=== PATIENT | male | born 1985 | race American Indian/Alaskan Native ===

== ENCOUNTER 2021-04-30 07:54 | Inpatient (IN) | payer OTHER ==
[2021-04-30] MEDS ORDERED: SODIUM CHLORIDE 0.9% 1000 ML 1,000 ML IV ONE ×2 (08:24→09:37)
--- NOTE | 2021-04-30 08:30 | Emergency Department Report ---
- General Chief complaint: Dyspnea/Respdistress Stated complaint: WEAKNESS Time Seen by Provider: 04/30/21 08:07 Source: patient Mode of arrival: Ambulatory Limitations: No Limitations - History of Present Illness Initial comments: 35-year-old male presents to the emergency department complaining of generalized weakness and fatigue. The patient states that it happened yesterday afternoon while he was at work. He states that he has been very thirsty lately and feels like he has been voiding a lot. He feels very dry, especially in his throat. He denies any recent sick exposures, injuries, fever or chills. He denies any upper respiratory symptoms including runny nose, sore throat, or cough. He denies any vomiting or diarrhea. Past medical history is negative. He denies any family history of diabetes. MD Complaint: generalized weakness, lack of energy Onset/Timin -: Sudden, days(s) Location: generalized Severity: moderate Consistency: constant Improves with: none Worsens with: exertion Associated Symptoms: other (Frequent urination, very thirsty) - Related Data Allergies Allergy/AdvReac Type Severity Reaction Status Date / Time No Known Allergies Allergy Unverified 04/30/21 07:56 ED Review of Systems ROS: Stated complaint: WEAKNESS Other details as noted in HPI Comment: All other systems reviewed and negative Constitutional: malaise, weakness. denies: chills, fever Eyes: denies: eye pain, eye discharge, vision change ENT: denies: ear pain, throat pain Respiratory: SOB with exertion. denies: cough, wheezing Cardiovascular: dyspnea on exertion. denies: chest pain, palpitations Endocrine: no symptoms reported, increased thirst, increased urine Gastrointestinal: denies: abdominal pain, nausea, diarrhea Genitourinary: denies: urgency, dysuria Musculoskeletal: denies: back pain, joint swelling, arthralgia Skin: denies: rash, lesions Neurological: weakness. denies: headache, paresthesias Psychiatric: denies: anxiety, depression Hematological/Lymphatic: denies: easy bleeding, easy bruising ED Past Medical Hx - Past Medical History Previous Medical History?: No - Surgical History Additional Surgical History: AMPUATATION 2 TOES/ HIP SURGERY ED Physical Exam - General Limitations: No Limitations General appearance: alert, in no apparent distress, obese - Head Head exam: Present: atraumatic, normocephalic - Eye Eye exam: Present: normal appearance - ENT ENT exam: Present: mucous membranes moist - Neck Neck exam: Present: normal inspection - Respiratory Respiratory exam: Present: normal lung sounds bilaterally. Absent: respiratory distress - Cardiovascular Cardiovascular Exam: Present: regular rate, normal rhythm. Absent: systolic murmur, diastolic murmur, rubs, gallop - GI/Abdominal GI/Abdominal exam: Present: soft, normal bowel sounds - Rectal Rectal exam: Present: deferred - Extremities Exam Extremities exam: Present: normal inspection - Back Exam Back exam: Present: normal inspection - Neurological Exam Neurological exam: Present: alert, oriented X3 - Psychiatric Psychiatric exam: Present: normal affect, normal mood - Skin Skin exam: Present: warm, dry, intact, normal color. Absent: rash - Level of Consciousness 1a. Level of Consciousness: alert/keenly responsive - LOC Questions 1b. LOC Questions: answers both correctly - LOC Command 1c. LOC Commands: performs tasks correctly - Best Gaze 2. Best Gaze: normal - Visual 3. Visual: no visual loss - Facial Palsy 4. Facial Palsy: normal symmetrical movement - Motor Arm 5a. Motor Arm Left: no drift 5b. Motor Arm Right: no drift - Motor Leg 6a. Motor Leg Left: no drift 6b. Motor Leg Right: no movement - Limb Ataxia 7. Limb Ataxia: absent - Sensory 8. Sensory: normal - Best Language 9. Best Language: no aphasia - Dysarthria 10. Dysarthria: normal - Extinction and Inattention 11. Extinction/Inattention: no abnormality - Scoring Total Score: 4 Stroke Severity: Minor Stroke ED Course Vital Signs 04/30/21 08:00 Temperature 98.3 F Pulse Rate 105 H Respiratory 20 Rate Blood Pressure 120/79 O2 Sat by Pulse 94 Oximetry - Reevaluation(s) Reevaluation #1: 04/30/21 09:12 Still feels dehydrated. No additional complaints 04/30/21 10:28 I reevaluated the patient and told him what the current findings are. We will call the hospitalist for admission. He has no further complaints. All questions were answered and he voiced understanding and agreement with this plan. - Consultations Consultation #1: 04/30/21 10:[address] Ernandez, hospitalist. The patient will be admitted to Dr. Dia ED Medical Decision Making - Lab Data Result diagrams: 04/30/21 08:43 11/18/21 08:43 - Medical Decision Making The patient has a glucose of 748 with an anion gap of 23. He does have pseudohyponatremia and hyperkalemia. He was treated with 2 L of IV normal saline and 10 units of IV insulin. I discussed the case with Dr. Kelly. I discussed the case with Dr. Ernandez. He will admit. Critical care attestation.: If time is entered above; I have spent that time in minutes in the direct care of this critically ill patient, excluding procedure time. ED Disposition Clinical Impression: Acute hyperglycemia, Diabetes mellitus, new onset, Hyperkalemia Disposition: ADMITTED INPATIENT Is pt being admited?: Yes Does the pt Need Aspirin: No Condition: Stable Instructions: Diabetes Mellitus Type 2 in Adults (ED)
[2021-04-30 09:23] LABS: Basophils % (Auto) 0.2 % (0.0-1.8); Eosinophils # (Auto) 0.1 K/mm3 (0.0-0.4); Hematocrit 49.3 % (35.5-45.6); Hemoglobin 16.1 gm/dl (11.8-15.2); Lymphocytes # (Auto) 2.7 K/mm3 (1.2-5.4); Lymphocytes % (Auto) 35.8 % (13.4-35.0); Mean Corpuscular HGB Conc 33 % (32-34); Mean Corpuscular Volume 88 fl (84-94); Monocytes # (Auto) 0.6 K/mm3 (0.0-0.8); Monocytes % (Auto) 8.5 % (0.0-7.3); Platelet Count 306 K/mm3 (140-440); Red Blood Count 5.58 M/mm3 (3.65-5.03); Red Cell Distribution Width 13.3 % (13.2-15.2)
[2021-04-30 09:35] LABS: Alanine Aminotransferase 23 units/L (7-56); Albumin 4.4 g/dL (3.9-5); BUN/Creatinine Ratio 22; Blood Urea Nitrogen 22 mg/dL (9-20); Calcium 9.3 mg/dL (8.4-10.2); Hemolysis Index 12
[2021-04-30] MEDS ORDERED: INSULIN REGULAR, HUMAN 100 UNITS/1 ML IV ONE (09:56)
[2021-04-30] MEDS ORDERED: ONDANSETRON 4 MG/2 ML INJ IV PRN (10:53)
[2021-04-30] MEDS ORDERED: MORPHINE 4 MG/1 ML INJ IV PRN (10:53)
[2021-04-30] MEDS ORDERED: DEXTROSE 50% IN WATER (25GM) 50 ML SYRINGE IV PRN (10:53)
[2021-04-30] MEDS ORDERED: ACETAMINOPHEN 325 MG TAB PO PRN (10:53)
[2021-04-30] MEDS ORDERED: oxyCODONE /ACETAMINOPHEN 5-325MG TAB PO PRN (10:53)
[2021-04-30] MEDS ORDERED: POTASSIUM CHLORIDE 10 MEQ 10 MEQ/100 ML BAG IV SCH ×2 (11:00)
[2021-04-30 11:40] LABS: BUN/Creatinine Ratio 20; Blood Urea Nitrogen 20 mg/dL (9-20); Calcium 8.6 mg/dL (8.4-10.2); Hemolysis Index 5
[2021-04-30 11:45] LABS: Chol/HDL Ratio 4.18 %
[2021-04-30] MEDS: INSULIN REGULAR, HUMAN 100 UNITS in SODIUM CHLORIDE 0.9% 99 ML IV SCH ×2 (11:51→23:23)
[2021-04-30] MEDS ORDERED: SODIUM CHLORIDE 0.45% 1000 ML 1,000 ML IV SCH (12:00)
[2021-04-30] MEDS ORDERED: POTASSIUM CHLORIDE 10 MEQ 10 MEQ/100 ML BAG IV PRN ×2 (12:00)
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
[2021-04-30 12:14] LABS: Bilirubin,Urine NEG (Negative); Blood,Urine NEG (Negative); Color,Urine Straw (Yellow); Protein,Urine <15 mg/dL mg/dL (Negative); Urobilinogen,Urine < 2.0 mg/dL (<2.0); WBC,Urine < 1.0 /HPF (0.0-6.0)
--- NOTE | 2021-04-30 12:58 | XRay Report ---
CHEST 1 VIEW 04/30/2021 10:29 AM INDICATION / CLINICAL INFORMATION: Assess for possible PNA. COMPARISON: None available. FINDINGS: SUPPORT DEVICES: None. HEART / MEDIASTINUM: No significant abnormality. LUNGS / PLEURA: No significant pulmonary or pleural abnormality. No pneumothorax. ADDITIONAL FINDINGS: No significant additional findings. IMPRESSION: 1. No acute findings. Signer Name: Rupesh Hidalgo MD Signed: 04/30/2021 12:54 PM Workstation Name: [id number]
[2021-04-30 14:22] LABS: BUN/Creatinine Ratio 21; Blood Urea Nitrogen 19 mg/dL (9-20); Calcium 8.8 mg/dL (8.4-10.2); Hemolysis Index 5
[2021-04-30 15:19] LABS: BUN/Creatinine Ratio 21; Blood Urea Nitrogen 19 mg/dL (9-20); Calcium 8.8 mg/dL (8.4-10.2); Hemolysis Index 4
[2021-04-30] MEDS: D5W/0.45% NACL/KCL 20 MEQ 20 MEQ/1,000 ML BAG IV SCH (18:21)
[2021-04-30] MEDS: ENOXAPARIN 40 MG/0.4 ML INJ SUB-Q SCH (18:27)
[2021-04-30 20:34] LABS: BUN/Creatinine Ratio 15; Blood Urea Nitrogen 17 mg/dL (9-20); Calcium 9.1 mg/dL (8.4-10.2); Hemolysis Index 5
[2021-04-30 23:29] LABS: BUN/Creatinine Ratio 15; Blood Urea Nitrogen 17 mg/dL (9-20); Calcium 9.1 mg/dL (8.4-10.2); Hemolysis Index 2
[2021-05-01] MEDS: D5W/0.45% NACL/KCL 20 MEQ 20 MEQ/1,000 ML BAG IV SCH (01:59)
[2021-05-01 05:14] LABS: Basophils % (Auto) 0.2 % (0.0-1.8); Eosinophils # (Auto) 0.1 K/mm3 (0.0-0.4); Eosinophils % (Auto) 1.8 % (0.0-4.3); Hematocrit 44.5 % (35.5-45.6); Hemoglobin 14.7 gm/dl (11.8-15.2); Lymphocytes # (Auto) 3.2 K/mm3 (1.2-5.4); Lymphocytes % (Auto) 48.2 % (13.4-35.0); Mean Corpuscular HGB Conc 33 % (32-34); Mean Corpuscular Volume 88 fl (84-94); Monocytes # (Auto) 0.5 K/mm3 (0.0-0.8); Monocytes % (Auto) 8.2 % (0.0-7.3); Platelet Count 240 K/mm3 (140-440); Red Blood Count 5.05 M/mm3 (3.65-5.03); Red Cell Distribution Width 13.8 % (13.2-15.2)
[2021-05-01 05:31] LABS: Alanine Aminotransferase 22 units/L (7-56); Albumin 3.7 g/dL (3.9-5); BUN/Creatinine Ratio 18; Blood Urea Nitrogen 16 mg/dL (9-20); Calcium 8.8 mg/dL (8.4-10.2); Hemolysis Index 15
[2021-05-01] MEDS ORDERED: DEXTROSE 50% IN WATER (25GM) 50 ML SYRINGE IV PRN (08:30)
--- NOTE | 2021-05-01 09:03 | Electrocardiograph Report ---
[facility] Test Date: 2021-04-30 Test Time: 09:46:50 Pat Name: MAURILIO KATHLEEN Department: Room: A252 Gender: M Case Managers: KB : 1985 Requested By: KRYSTINA MCFARLAND Order Number: [id number] Reading MD: Christo Bailey Measurements Intervals [place] Rate: 93 P: 71 NH: 144 QRS: -24 QRSD: 93 T: 35 QT: 338 QTc: 421 Interpretive Statements Sinus rhythm ST elev, probable normal early repol pattern No previous ECG available for comparison Electronically Signed On 05-01-2021 9:02:48 EST by Christo Bailey
[2021-05-01] MEDS: INSULIN NPH, HUMAN 100 UNIT/1 ML SUB-Q SCH ×2 (09:27→16:29)
[2021-05-01] MEDS: INSULIN LISPRO 100 UNIT/ML SUB-Q SCH ×4 (09:36→22:13)
[2021-05-01] MEDS: SENNOSIDES 8.6 MG TAB PO SCH ×2 (10:29→22:15)
--- NOTE | 2021-05-01 11:57 | Consultation ---
History of Present Illness - Reason for Consult Consult date: 05/01/21 DKA - History of Present Illness 35 y/o male admitted with DKA Past History Past Medical History: diabetes Past Surgical History: Other (amputation of several toes (r), B hip surgery) Social history: single, full code. denies: smoking, alcohol abuse, prescription drug abuse, IV drug use Family history: diabetes Medications and Allergies Allergies Allergy/AdvReac Type Severity Reaction Status Date / Time No Known Allergies Allergy Unverified 04/30/21 07:56 Home Medications Medication Instructions Recorded Confirmed Last Taken Type No Known Home Medications [No 04/30/21 04/30/21 Unknown History Reported Home Medications] Active Meds: Active Medications Acetaminophen (Acetaminophen 325 Mg Tab) 650 mg PO Q6H PRN PRN Reason: Pain MILD(1-3)/Fever >100.5/CONTRERAS Dextrose (Dextrose 50% In Water (25gm) 50 Ml Syringe) 50 ml IV Q30MIN PRN; Protocol PRN Reason: Hypoglycemia Enoxaparin Sodium (Enoxaparin 40 Mg/0.4 Ml Inj) 40 mg SUB-Q Q24H PADDY; Protocol Last Admin: 04/30/21 18:27 Dose: 40 mg Documented by: Sodium Chloride (Nacl 0.45% 1000 Ml) 1,000 mls @ 150 mls/hr IV DIRECT PADDY Last Admin: 04/30/21 11:52 Dose: 150 mls/hr Documented by: Potassium Chloride (Kcl 10meq/100ml) 10 meq in 100 mls @ 100 mls/hr IV Q1H PRN PRN Reason: SEE COMMENTS Potassium Chloride (Kcl 10meq/100ml) 10 meq in 100 mls @ 100 mls/hr IV Q1H PRN PRN Reason: SEE COMMENTS Insulin Human Lispro (Insulin Lispro 100 Unit/Ml) 0 unit SUB-Q ACHS PADDY; Protocol Last Admin: 05/01/21 11:54 Dose: 3 unit Documented by: Insulin Human NPH (Insulin Nph, Human 100 Unit/1 Ml) 15 unit SUB-Q BIDDIAB PADDY Last Admin: 05/01/21 09:45 Dose: 15 unit Documented by: Ondansetron HCl (Ondansetron 4 Mg/2 Ml Inj) 4 mg IV Q8H PRN PRN Reason: Nausea And Vomiting Oxycodone/Acetaminophen (Oxycodone /Acetaminophen 5-325mg Tab) 1 tab PO Q6H PRN PRN Reason: Pain, Moderate (4-6) Senna (Sennosides 8.6 Mg Tab) 17.2 mg PO QHS [facility] Last Admin: 05/01/21 10:29 Dose: Not Given Documented by: Sodium Chloride (Sodium Chloride 0.9% 10 Ml Flush Syringe) 10 ml IV BID [facility] Last Admin: 05/01/21 10:28 Dose: 10 ml Documented by: Sodium Chloride (Sodium Chloride 0.9% 10 Ml Flush Syringe) 10 ml IV PRN PRN PRN Reason: LINE FLUSH Review of Systems All systems: negative Exam - Constitutional Vitals: Temp Pulse Resp BP Pulse Ox 98.2 F 78 13 133/79 95 05/01/21 08:00 05/01/21 11:11 05/01/21 11:11 05/01/21 11:11 05/01/21 11:11 General appearance: Present: no acute distress, well-nourished, obese - EENT Eyes: Present: PERRL, EOM intact ENT: hearing intact, clear oral mucosa - Neck Neck: Present: supple, normal ROM - Respiratory Respiratory effort: normal Respiratory: bilateral: CTA - Cardiovascular Rhythm: regular Heart Sounds: Present: S1 & S2 - Extremities Extremities: no ischemia, pulses intact, pulses symmetrical, No edema Results - Labs CBC & Chem 7: 05/01/21 04:22 05/01/21 04:22 Labs: Abnormal lab results 04/30/21 04/30/21 04/30/21 Range/Units 12:53 13:51 14:02 RBC (3.65-5.03) M/mm3 Lymph % (Auto) (13.4-35.0) % [place] % (Auto) (0.0-7.3) % Sodium 134 L (137-145) mmol/L Chloride 95.0 L (98-107) mmol/L Glucose 415 H (75-100) mg/dL POC Glucose 439 H 379 H (70-105) mg/dL Albumin (3.9-5) g/dL Ur Specific [place] (1.003-1.030) 04/30/21 04/30/21 04/30/21 Range/Units 14:47 14:50 15:49 RBC (3.65-5.03) M/mm3 Lymph % (Auto) (13.4-35.0) % [place] % (Auto) (0.0-7.3) % Sodium 133 L (137-145) mmol/L Chloride 96.0 L (98-107) mmol/L Glucose 366 H (75-100) mg/dL POC Glucose 324 H 318 H (70-105) mg/dL Albumin (3.9-5) g/dL Ur Specific [place] (1.003-1.030) 04/30/21 04/30/21 04/30/21 Range/Units 18:12 19:25 19:55 RBC (3.65-5.03) M/mm3 Lymph % (Auto) (13.4-35.0) % [place] % (Auto) (0.0-7.3) % Sodium (137-145) mmol/L Chloride (98-107) mmol/L Glucose 258 H (75-100) mg/dL POC Glucose 206 H 243 H (70-105) mg/dL Albumin (3.9-5) g/dL Ur Specific [place] (1.003-1.030) 04/30/21 04/30/21 04/30/21 Range/Units 20:44 21:25 22:35 RBC (3.65-5.03) M/mm3 Lymph % (Auto) (13.4-35.0) % [place] % (Auto) (0.0-7.3) % Sodium (137-145) mmol/L Chloride (98-107) mmol/L Glucose (75-100) mg/dL POC Glucose 245 H 248 H 210 H (70-105) mg/dL Albumin (3.9-5) g/dL Ur Specific [place] (1.003-1.030) 04/30/21 04/30/21 04/30/21 Range/Units 23:00 23:28 Unknown RBC (3.65-5.03) M/mm3 Lymph % (Auto) (13.4-35.0) % [place] % (Auto) (0.0-7.3) % Sodium (137-145) mmol/L Chloride (98-107) mmol/L Glucose 173 H (75-100) mg/dL POC Glucose 153 H (70-105) mg/dL Albumin (3.9-5) g/dL Ur Specific [place] 1.033 H (1.003-1.030) 05/01/21 05/01/21 05/01/21 Range/Units 00:37 01:22 02:26 RBC (3.65-5.03) M/mm3 Lymph % (Auto) (13.4-35.0) % [place] % (Auto) (0.0-7.3) % Sodium (137-145) mmol/L Chloride (98-107) mmol/L Glucose (75-100) mg/dL POC Glucose 132 H 147 H 136 H (70-105) mg/dL Albumin (3.9-5) g/dL Ur Specific [place] (1.003-1.030) 05/01/21 05/01/21 05/01/21 Range/Units 03:32 04:22 04:22 RBC 5.05 H (3.65-5.03) M/mm3 Lymph % (Auto) 48.2 H (13.4-35.0) % [place] % (Auto) 8.2 H (0.0-7.3) % Sodium (137-145) mmol/L Chloride (98-107) mmol/L Glucose 183 H (75-100) mg/dL POC Glucose 149 H (70-105) mg/dL Albumin 3.7 L (3.9-5) g/dL Ur Specific [place] (1.003-1.030) 05/01/21 05/01/21 05/01/21 Range/Units 04:55 05:47 06:40 RBC (3.65-5.03) M/mm3 Lymph % (Auto) (13.4-35.0) % [place] % (Auto) (0.0-7.3) % Sodium (137-145) mmol/L Chloride (98-107) mmol/L Glucose (75-100) mg/dL POC Glucose 178 H 195 H 189 H (70-105) mg/dL Albumin (3.9-5) g/dL Ur Specific [place] (1.003-1.030) 05/01/21 05/01/21 05/01/21 Range/Units 07:38 08:37 11:40 RBC (3.65-5.03) M/mm3 Lymph % (Auto) (13.4-35.0) % [place] % (Auto) (0.0-7.3) % Sodium (137-145) mmol/L Chloride (98-107) mmol/L Glucose (75-100) mg/dL POC Glucose 169 H 145 H 200 H (70-105) mg/dL Albumin (3.9-5) g/dL Ur Specific [place] (1.003-1.030) - Imaging and Cardiology Chest x-ray: report reviewed Assessment and Plan 35 y/o male with DKA. Gap closed very quickly, off insulin and started on long acting therapy. Transition out of unit. Will sign off.
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
[2021-05-01] MEDS: ENOXAPARIN 40 MG/0.4 ML INJ SUB-Q SCH (16:29)
[2021-05-01 18:36] LABS: BUN/Creatinine Ratio 17; Blood Urea Nitrogen 17 mg/dL (9-20); Calcium 8.2 mg/dL (8.4-10.2); Hemolysis Index 61
[2021-05-01] MEDS ORDERED: INSULIN NPH, HUMAN 100 UNIT/1 ML SUB-Q ONE (19:53)
[2021-05-02 04:57] LABS: Basophils % (Auto) 0.4 % (0.0-1.8); Eosinophils # (Auto) 0.1 K/mm3 (0.0-0.4); Hematocrit 41.7 % (35.5-45.6); Hemoglobin 13.9 gm/dl (11.8-15.2); Lymphocytes # (Auto) 2.6 K/mm3 (1.2-5.4); Lymphocytes % (Auto) 48.3 % (13.4-35.0); Mean Corpuscular HGB Conc 33 % (32-34); Mean Corpuscular Volume 88 fl (84-94); Monocytes # (Auto) 0.5 K/mm3 (0.0-0.8); Monocytes % (Auto) 9.6 % (0.0-7.3); Platelet Count 215 K/mm3 (140-440); Red Blood Count 4.75 M/mm3 (3.65-5.03); Red Cell Distribution Width 13.7 % (13.2-15.2)
[2021-05-02 05:17] LABS: BUN/Creatinine Ratio 18; Blood Urea Nitrogen 14 mg/dL (9-20); Calcium 8.7 mg/dL (8.4-10.2); Hemolysis Index 10
[2021-05-02] MEDS: INSULIN LISPRO 100 UNIT/ML SUB-Q SCH ×4 (07:30→23:28)
[2021-05-02] MEDS ORDERED: glipiZIDE 5 MG TAB PO SCH (08:00)
[2021-05-02] MEDS: INSULIN NPH, HUMAN 100 UNIT/1 ML SUB-Q SCH ×2 (08:00→17:00)
[2021-05-02] MEDS: metFORMIN XR 500MG TAB PO SCH (08:00)
[2021-05-02] MEDS: LISINOPRIL 10 MG TAB PO SCH (09:28)
--- NOTE | 2021-05-02 12:55 | Progress Note ---
Assessment and Plan Assessment and plan: Patient is a 35-year-old male with past medical history of obesity who presented with DKA and was found to have newly diagnosed diabetes mellitus type 2. #DKA #Newly diagnosed diabetes mellitus type 2 #Obesity #Weight loss counseling #Exercise counseling #Dietary counseling -Hemoglobin A1c 11.9 -Continue NPH 15 units twice daily with Accu-Cheks with meals. Starting Met formin 500 mg twice daily and glipizide 5 mg daily. Will not be discharging patient with insulin given new diagnosis. Will have patient follow-up with PCP (referring upon discharge) to better titrate glycemic management. -Ordering diabetic counseling to be performed by RN. -Continuing diabetic diet. -Blood glucose goal [id number] while hospitalized. -BMI 37.4 -Counseled patient about importance of weight loss counseling, dietary changes (lean meats, fresh fruits and vegetable, and increase water intake), and incorporating cardiac exercise. Patient expressed understanding. -Time: +15 minutes #Hypertension -Blood pressure goal <130/180 in the setting of diabetes mellitus -Starting lisinopril 10 mg daily -Continue to monitor #Advanced care planning -Disease education conducted, care plan discussed, diagnoses discussed, prognosis discussed, and patient acknowledges understanding with care plan -Time: +20 minutes #Discharge planning -Planning for discharge home tomorrow with family. Disposition Plan: Continue medical management Total Time Spent with Patient (Minutes): 45 minutes History Interval history: No acute events over night. The patient denies fevers, chills, nausea, vomiting, abdominal pain, chest pain/pressure, shortness of breath, urinary symptoms, weakness, or confusion. Hospitalist Physical - Constitutional Vitals: Temp Pulse Resp BP Pulse Ox 98.3 F 85 19 136/92 95 05/02/21 05:44 05/02/21 05:44 05/02/21 05:44 05/02/21 05:44 05/02/21 05:44 General appearance: Present: no acute distress, well-nourished, obese - EENT Eyes: Present: PERRL, EOM intact ENT: hearing intact, clear oral mucosa, dentition normal - Neck Neck: Present: supple, normal ROM - Respiratory Respiratory effort: normal Respiratory: bilateral: CTA - Cardiovascular Rhythm: regular Heart Sounds: Present: S1 & S2 - Extremities Extremities: no ischemia, pulses intact, pulses symmetrical, No edema, normal temperature, normal color, Full ROM Peripheral Pulses: within normal limits - Abdominal General gastrointestinal: soft, non-tender, non-distended, normal bowel sounds - Integumentary Integumentary: Present: clear, warm, dry - Psychiatric Psychiatric: appropriate mood/affect, intact judgment & insight, memory intact, cooperative - Neurologic Neurologic: CNII-XII intact, moves all extremities - Allied Health Allied health notes reviewed: nursing HEART Score - HEART Score EKG: Normal Age: < 45 Risk factors: 1-2 risk factors Results - Labs CBC & Chem 7: 05/02/21 04:42 05/02/21 04:42 Labs: Laboratory Last Values WBC 5.4 K/mm3 (4.5-11.0) 05/02/21 04:42 RBC 4.75 M/mm3 (3.65-5.03) 05/02/21 04:42 Hgb 13.9 gm/dl (11.8-15.2) 05/02/21 04:42 Hct 41.7 % (35.5-45.6) 05/02/21 04:42 MCV 88 fl (84-94) 05/02/21 04:42 MCH 29 pg (28-32) 05/02/21 04:42 MCHC 33 % (32-34) 05/02/21 04:42 RDW 13.7 % (13.2-15.2) 05/02/21 04:42 Plt Count 215 K/mm3 (140-440) 05/02/21 04:42 Lymph % (Auto) 48.3 % (13.4-35.0) H 05/02/21 04:42 [place] % (Auto) 9.6 % (0.0-7.3) H 05/02/21 04:42 Eos % (Auto) 2.0 % (0.0-4.3) 05/02/21 04:42 Baso % (Auto) 0.4 % (0.0-1.8) 05/02/21 04:42 Lymph # (Auto) 2.6 K/mm3 (1.2-5.4) 05/02/21 04:42 [place] # (Auto) 0.5 K/mm3 (0.0-0.8) 05/02/21 04:42 Eos # (Auto) 0.1 K/mm3 (0.0-0.4) 05/02/21 04:42 Baso # (Auto) 0.0 K/mm3 (0.0-0.1) 05/02/21 04:42 Seg Neutrophils % 39.7 % (40.0-70.0) L 05/02/21 04:42 Seg Neutrophils # 2.1 K/mm3 (1.8-7.7) 05/02/21 04:42 VBG pH 7.389 (7.320-7.420) 04/30/21 10:14 Sodium 138 mmol/L (137-145) 05/02/21 04:42 Potassium 4.1 mmol/L (3.6-5.0) 05/02/21 04:42 Chloride 102.1 mmol/L (98-107) 05/02/21 04:42 Carbon Dioxide 26 mmol/L (22-30) 05/02/21 04:42 Anion Gap 14 mmol/L 05/02/21 04:42 BUN 14 mg/dL (9-20) 05/02/21 04:42 Creatinine 0.8 mg/dL (0.8-1.3) 05/02/21 04:42 Estimated GFR > 60 ml/min 05/02/21 04:42 BUN/Creatinine Ratio 18 % 05/02/21 04:42 Glucose 285 mg/dL (75-100) H 05/02/21 04:42 POC Glucose 271 mg/dL (70-105) H 05/02/21 11:30 Hemoglobin A1c 11.9 % (4-6) H 04/30/21 11:08 Lactic Acid 1.70 mmol/L (0.7-2.0) 04/30/21 11:08 Calcium 8.7 mg/dL (8.4-10.2) 05/02/21 04:42 Phosphorus 3.40 mg/dL (2.5-4.5) 05/02/21 04:42 Magnesium 1.90 mg/dL (1.7-2.3) 05/02/21 04:42 Total Bilirubin 0.50 mg/dL (0.1-1.2) 05/01/21 04:22 AST 21 units/L (5-40) 05/01/21 04:22 ALT 22 units/L (7-56) 05/01/21 04:22 Alkaline Phosphatase 82 units/L (35-129) 05/01/21 04:22 Total Protein 7.6 g/dL (6.3-8.2) 05/01/21 04:22 Albumin 3.7 g/dL (3.9-5) L 05/01/21 04:22 Albumin/Globulin Ratio 0.9 % 05/01/21 04:22 Triglycerides 174 mg/dL (2-149) H 04/30/21 11:08 Cholesterol 92 mg/dL (50-199) 04/30/21 11:08 LDL Cholesterol Direct 50 mg/dL (50-130) 04/30/21 11:08 HDL Cholesterol 22 mg/dL (40-59) L 04/30/21 11:08 Cholesterol/HDL Ratio 4.18 % 04/30/21 11:08 Urine Color Straw (Yellow) 04/30/21 Unknown Urine Turbidity Clear (Clear) 04/30/21 Unknown Urine pH 6.0 (5.0-7.0) 04/30/21 Unknown Ur Specific [place] 1.033 (1.003-1.030) H 04/30/21 Unknown Urine Protein <15 mg/dl mg/dL (Negative) 04/30/21 Unknown Urine Glucose (UA) >=500 mg/dL (Negative) 04/30/21 Unknown Urine Ketones 20 mg/dL (Negative) 04/30/21 Unknown Urine Blood Neg (Negative) 04/30/21 Unknown Urine Nitrite Neg (Negative) 04/30/21 Unknown Urine Bilirubin Neg (Negative) 04/30/21 Unknown Urine Urobilinogen < 2.0 mg/dL (<2.0) 04/30/21 Unknown Ur Leukocyte Esterase Neg (Negative) 04/30/21 Unknown Urine WBC (Auto) < 1.0 /HPF (0.0-6.0) 04/30/21 Unknown Urine RBC (Auto) 3.0 /HPF (0.0-6.0) 04/30/21 Unknown Coronavirus (PCR) Negative (Negative) 05/01/21 Unknown Microbiology: Microbiology 04/30/21 11:08 Peripheral/Venous Blood Culture - Preliminary NO GROWTH AFTER 48 HOURS 04/30/21 11:08 Peripheral/Venous Blood Culture - Preliminary NO GROWTH AFTER 48 HOURS [place]/IV: Voiding Method Urinal Active Medications - Current Medications Current Medications: Generic Name Dose Route Start Last Admin Trade Name Freq PRN Reason Stop Dose Admin Acetaminophen 650 mg 04/30/21 10:53 Acetaminophen 325 Mg Tab PO Q6H PRN Pain MILD(1-3)/Fever >100.5/CONTRERAS Dextrose 50 ml 05/01/21 08:30 Dextrose 50% In Water (25gm) 50 Ml Syringe IV Q30MIN PRN Hypoglycemia Protocol Enoxaparin Sodium 40 mg 04/30/21 17:00 05/01/21 16:29 Enoxaparin 40 Mg/0.4 Ml Inj SUB-Q 40 mg Q24H PADDY Administration Protocol Glipizide 5 mg 05/02/21 08:00 05/02/21 08:00 Glipizide 5 Mg Tab PO 5 mg QDDIAB PADDY Administration Insulin Human Lispro 0 unit 05/01/21 08:30 05/02/21 11:30 Insulin Lispro 100 Unit/Ml SUB-Q 4 unit ACHS PADDY Administration Protocol Insulin Human NPH 15 unit 05/01/21 09:00 05/01/21 16:29 Insulin Nph, Human 100 Unit/1 Ml SUB-Q 15 unit BIDDIAB PADDY Administration Lisinopril 10 mg 05/02/21 10:00 05/02/21 09:28 Lisinopril 10 Mg Tab PO 10 mg QDAY PADDY Administration Metformin HCl 500 mg 05/02/21 08:00 05/02/21 08:00 Metformin Xr 500mg Tab PO 500 mg QDDIAB PADDY Administration Ondansetron HCl 4 mg 04/30/21 10:53 Ondansetron 4 Mg/2 Ml Inj IV Q8H PRN Nausea And Vomiting Oxycodone/Acetaminophen 1 tab 04/30/21 10:53 Oxycodone /Acetaminophen 5-325mg Tab PO Q6H PRN Pain, Moderate (4-6) Senna 17.2 mg 05/01/21 10:00 05/01/21 22:15 Sennosides 8.6 Mg Tab PO Not Given QHS PADDY Sodium Chloride 10 ml 04/30/21 22:00 05/02/21 10:00 Sodium Chloride 0.9% 10 Ml Flush Syringe IV 10 ml BID PADDY Administration Sodium Chloride 10 ml 04/30/21 10:53 Sodium Chloride 0.9% 10 Ml Flush Syringe IV PRN PRN LINE FLUSH Nutrition/Malnutrition Assess - Dietary Evaluation Nutrition/Malnutrition Findings: Nutrition Notes Start: 04/30/21 17:22 Freq: Status: Active Protocol: Document 04/30/21 17:22 SHEYLA (Rec: 04/30/21 17:52 SHEYLA [email or web address]) Nutrition Notes Need for Assessment generated from: senior pastor Initial or Follow up Assessment Current Diagnosis Acute Kidney Injury,Diabetes Other Pertinent Diagnosis DKA, Hyponatreemia, Hyperkalemia, Hemoconcentration, New onset T2DM. Current Diet NPO (since 04/30 10:55) Labs/Tests 04/30: Na 133, Cl 96.0, Glu 366. Pertinent Medications 04/30: Insulin, others nutritionally unremarkable. Height 6 ft 4 in Weight 139.253 kg [place] Body Weight (kg) 91.81 BMI 37.3 Weight Status Obese Subjective/Other Information RD consult for assessment of new onset diabetes. Pt denies Hx of Diabetes. Percent of energy/protein needs met: Pt currently on NPO. Burn Absent Trauma Absent GI Symptoms None Food Allergy No Skin Integrity/Comment Clear, warm, dry. Current % PO Other Minimum of two criteria No #1 Nutrition Diagnosis Altered nutrition-related laboratory values Comments: Pt denies Hx of Diabetes. Etiology New onset T2DM As Evidenced by Signs and Symptoms Abnormal chemistry lab values, Current MD diagnosis. Is patient on ventilator? No Is Patient Ambulatory and/or Out of Bed Yes REE-([facility]-ambulatory/OOB) [ 3164.239 NUTR.[id number]] Kcal/Kg value to use for calculation 16 Approximate Energy Requirements Using 2228 kcal/Kg Calculation Used for Recommendations Kcal/kg Additional Notes Protein: 1-1.2 g/Kg; 92-110 g/ day (from IBW+stress). Fluids: 1 ml/Kcal, or as per MD. Nutrition Intervention Change Diet Order: Continue NPO as per MD; when pertinent, advance to Consistent Carbohydrates Diet. Goal #1 Maintain body weight within +/ -3% of current BWt during LOS. Goal #2 Reach and maintain acceptable chemistry lab values during LOS. Follow-Up By: 05/07/21 Additional Comments Continue monitoring Hydration, and BM; when pertinent, food tolerance, %PO intake of meals .
[2021-05-02] MEDS: ENOXAPARIN 40 MG/0.4 ML INJ SUB-Q SCH (17:00)
[2021-05-02] MEDS: SENNOSIDES 8.6 MG TAB PO SCH (22:18)
[2021-05-03 05:05] LABS: BUN/Creatinine Ratio 17; Blood Urea Nitrogen 15 mg/dL (9-20); Calcium 8.9 mg/dL (8.4-10.2); Hemolysis Index 7
[2021-05-03] MEDS ORDERED: glipiZIDE 5 MG TAB PO SCH (06:58)
[2021-05-03] MEDS: INSULIN LISPRO 100 UNIT/ML SUB-Q SCH ×2 (07:30→11:30)
[2021-05-03] MEDS: INSULIN NPH, HUMAN 100 UNIT/1 ML SUB-Q SCH (08:00)
[2021-05-03] MEDS: metFORMIN XR 500MG TAB PO SCH (08:37)
[2021-05-03] MEDS: LISINOPRIL 10 MG TAB PO SCH (09:36)
--- NOTE | 2021-05-03 10:58 | Discharge Summary ---
Providers - Providers Date of Admission: 04/30/21 10:53 Date of discharge: 05/03/21 Attending physician: AYAD BROWN MD Primary care physician: TICKET MACHINE OPERATOR Hospitalization Reason for admission: Diabetic ketoacidosis Condition: Stable Pertinent studies: Reviewed. Procedures: None. Hospital course: Patient is a 35-year-old male with past medical history of obesity who presented with DKA and was found to have newly diagnosed diabetes mellitus type 2. The patient was started on insulin drip and transferred to the ICU in order to ensure glycemic control and eventual closing of the anion gap. The patient was transitioned to subcutaneous insulin and transferred to the floor. The patient has since been transitioned to oral glycemic medications, and educated at length about lifestyle changes (dietary, weight loss, and exercise) to better aid in management of diabetes mellitus type 2. The patient was found to have a hemoglobin A1c of 11.9. The patient will be discharged with PCP follow-up for better titration of glycemic management. The patient was also started on lisinopril 10 mg daily for blood pressure control with a goal of <130/80. Patient expressed understanding, and the patient will be discharged home today. Disposition: 01 HOME / SELF CARE / HOMELESS Final Discharge Diagnosis (Prints w/discharge instructions): Diabetic ketoacidosis, newly diagnosed diabetes mellitus type 2, obesity, hypertension Time spent for discharge: 45 minutes Core Measure Documentation - Palliative Care Palliative Care/ Comfort Measures: Not Applicable - Core Measures Any of the following diagnoses?: none - VTE Discharge Requirements Deep Vein Thrombosis/Pulmonary Embolism Present on Admission: No Has pt received <5 days of overlap therapy or INR<2.0: No (Not indicated) Anticoagulant overlap therapy prescribed at discharge: No Contraindication No Overlap Therapy order at DC: Not Indicated - Acute NM Discharge Requirements Aspirin at discharge: No Reason for no aspirin on DC: Medical contraindication (Not indicated) CLEMENCIA/ARB for LVSD if EF <40%: Yes Beta ezequiel at discharge: No Reason for no beta ezequiel on DC: Medical contraindication (Not indicated) Statin for LDL = or >100 mg/dl on DC: Not Applicable Reason for no statin on DC: Medical contraindication (Not indicated) - Heart Failure Discharge Requirements CLEMENCIA/ARB for LVSD if EF <40%: Yes Beta ezequiel at discharge: No Reason for no beta ezequiel on DC: Medical contraindication (Not indicated) - Stroke Discharge Requirements Statin for LDL = or >70 mg/dl on DC: No Reason for no statin on DC: Not Indicated Anticoag for atrial fib/atrial flutter: Not Applicable Reason for no anticoag for AF/F on DC: Not Indicated Antithrombotic for ischemic stroke: No Reason for no antithrombotic on DC: Not Indicated Exam - Constitutional Vitals: Temp Pulse Resp BP Pulse Ox 97.4 F L 75 20 126/84 97 05/03/21 05:35 05/03/21 05:35 05/03/21 05:35 05/03/21 05:35 05/03/21 05:35 General appearance: Present: no acute distress, well-nourished, obese - EENT Eyes: Present: PERRL, EOM intact ENT: hearing intact, clear oral mucosa, dentition normal - Neck Neck: Present: supple, normal ROM - Respiratory Respiratory effort: normal Respiratory: bilateral: CTA - Cardiovascular Rhythm: regular Heart Sounds: Present: S1 & S2 - Extremities Extremities: no ischemia, pulses intact, pulses symmetrical, No edema, normal temperature, normal color, Full ROM Peripheral Pulses: within normal limits - Abdominal General gastrointestinal: Present: soft, non-tender, non-distended, normal bowel sounds Male genitourinary: Present: deferred - Rectal Rectal Exam: deferred - Integumentary Integumentary: Present: clear, warm, dry - Musculoskeletal Musculoskeletal: strength equal bilaterally - Psychiatric Psychiatric: appropriate mood/affect, intact judgment & insight, memory intact, cooperative - Neurologic Neurologic: CNII-XII intact, moves all extremities - Allied Health Allied health notes reviewed: nursing Plan Activity: no restrictions Diet: diabetic Special Instructions: record blood sugar diary Care Plan Goals: Patient discharging home safely. Assessment: Patient was admitted for DKA in the setting of newly diagnosed type 2 diabetes mellitus. The patient was transitioned from insulin drip to subcutaneous insulin + oral glycemic medications. The patient was educated at length about lifestyle changes such as weight loss, dietary changes, and exercise. The patient expressed understanding. Patient received diabetic counseling at bedside. Patient will follow up with PCP in approximately 1 week. Follow up with: BOZENA DALE MD [Staff Physician] - 7 Days (To establish PCP care after newly diagnosed DM Type 2 c/b DKA admission. ) PRIMARY CAREMD [Primary Care Provider] - 7 Days Prescriptions: metFORMIN XR [Glucophage XR] 500 mg PO QDDIAB #60 tablet glipiZIDE [Glucotrol] 10 mg PO QDDIAB #60 tablet lisinopriL [Zestril TAB] 10 mg PO QDAY #30 tablet
[2021-05-03 12:19] VITALS: BP 116/77
== END 2021-05-03 16:10 | disposition home or self-care (01) | DRG 639 ==
LOC: ED 07:54 → CC1 10:53 → 3A 05-01 23:16
PROVIDERS: ADMIT Student in an Organized Health Care Education/Training Program; ATTEND Student in an Organized Health Care Education/Training Program
DX: E11.10 Type 2 diabetes mellitus with ketoacidosis without coma (principal); E87.5 Hyperkalemia; Z20.822 Contact with and (suspected) exposure to COVID-19; E66.01 Morbid (severe) obesity due to excess calories; Z68.37 Body mass index [BMI] 37.0-37.9, adult; R71.8 Other abnormality of red blood cells; Z89.421 Acquired absence of other right toe(s); Z83.3 Family history of diabetes mellitus; Z71.3 Dietary counseling and surveillance
CPT/HCPCS: 36415; 71045; 80048; 80053; 80061; 81001; 82140; 82805; 82962; 83036; 83735; 84100; 85025; 87040; 93005; G0378; J2354; J3480; J3490; Q0162; Q9967; J1650; J1815; J7030; U0003

== ENCOUNTER 2021-06-16 12:57 | Emergency (ER) | payer OTHER ==
[2021-06-16] MEDS ORDERED: IBUPROFEN 800 MG TAB PO ONE (15:23)
--- NOTE | 2021-06-16 15:37 | Emergency Department Report ---
Minor Respiratory - HPI Duration: Today Severity: moderate Minor Respiratory: Yes Sore Throat, Yes Able to Tolerate Fluids, Yes Cough (Slight cough), Yes Sick Contacts, Yes Fever, No Chest Pain, No Shortness of Breath Other History: 35-year-old morbid obese -[place] male presents to the emergency room complaining of headaches, dizziness, body feeling weak, body aches photophobia. He denies any shortness of breath denies any chest pain. Patient is unvaccinated. He has not tested for Covid. He does have a recent diagnosis of diabetes type 2 and hypertension. Patient states that he is on Metformin and glipizide. He states he takes lisinopril for his hypertension. Patient is taking nothing for his fever or body aches. He states is been able to hold down water. <TEO MCCOY - Last Filed: 06/16/21 16:18> <BRIAN KILPATRICK - Last Filed: 06/16/21 19:46> - HPI Chief Complaint: Headache Stated Complaint: headace Time Seen by Provider: 06/16/21 15:22 ED Review of Systems ROS: Stated complaint: headace Other details as noted in HPI Comment: All other systems reviewed and negative <TEO MCCOY - Last Filed: 06/16/21 16:18> ROS: Stated complaint: headace Other details as noted in HPI <BRIAN KILPATRICK - Last Filed: 06/16/21 19:46> ED Past Medical Hx - Past Medical History Hx Congestive Heart Failure: No Hx Diabetes: No Hx Asthma: No Hx COPD: No - Surgical History Additional Surgical History: AMPUATATION 2 TOES/ HIP SURGERY - Social History Smoking Status: Never Smoker <TEO MCCOY - Last Filed: 06/16/21 16:18> <BRIAN KILPATRICK - Last Filed: 06/16/21 19:46> - Medications Home Medications: Home Medications Medication Instructions Recorded Confirmed Last Taken Type glipiZIDE [Glucotrol] 10 mg PO QDDIAB #60 tablet 05/03/21 Unknown Rx lisinopriL [Zestril TAB] 10 mg PO QDAY #30 tablet 05/03/21 Unknown Rx metFORMIN XR [Glucophage XR] 500 mg PO QDDIAB #60 tablet 05/03/21 Unknown Rx Ibuprofen [Motrin] 600 mg PO Q8H PRN #30 tablet 06/16/21 Unknown Rx Minor Respiratory Exam - Exam General: Vital signs noted. No distress. Alert and acting appropriately. HEENT: Yes Moist Mucous Membranes, No Pharyngeal Erythema, No Pharyngeal Exudates, No Rhinorrhea, No Conjuctival Injection, No Frontal Tenderness, No Maxillary Tenderness Ear: Neither TM Bulge, Neither TM Erythema, Neither EAC Pain, Neither EAC Discharge Neck: Yes Supple, No Adenopathy Lungs: Yes Good Air Exchange, No Wheezes, No Ronchi, No Stridor, No Cough, No Labored Respirations, No Retractions, No Use of Accessory Muscles, No Other Abnormal Lung Sounds Heart: Yes Regular, No Murmur Abdomen: Yes Normal Bowel Sounds, No Tenderness, No Peritoneal Signs Neurologic: Alert and oriented, no deficits. Musculoskeletal: Unremarkable. <TEO MCCOY - Last Filed: 06/16/21 16:18> - Exam General: Vital signs noted. No distress. Alert and acting appropriately. Neurologic: Alert and oriented, no deficits. Musculoskeletal: Unremarkable. <BRIAN KILPATRICK - Last Filed: 06/16/21 19:46> ED Course Vital Signs 06/16/21 15:08 Temperature 103.8 F H Pulse Rate 118 H Blood Pressure 142/93 O2 Sat by Pulse 95 Oximetry <TEO MCCOY - Last Filed: 06/16/21 16:18> Vital Signs 06/16/21 15:08 Temperature 103.8 F H Pulse Rate 118 H Blood Pressure 142/93 O2 Sat by Pulse 95 Oximetry <BRIAN KILPATRICK - Last Filed: 06/16/21 19:46> ED Medical Decision Making - Radiology Data Radiology results: report reviewed 35-year-old morbid obese -[place] male presents to the emergency room complaining of headaches, dizziness, body feeling weak, body aches photophobia. He denies any shortness of breath denies any chest pain. Patient is unvaccinat ed. He has not tested for Covid. He does have a recent diagnosis of diabetes type 2 and hypertension. Patient states that he is on Metformin and glipizide. He states he takes lisinopril for his hypertension. Patient is taking nothing for his fever or body aches. He states is been able to hold down water. - Medical Decision Making 35-year-old morbid obese -[place] male presents to the emergency room complaining of headaches, dizziness, body feeling weak, body aches photophobia. He denies any shortness of breath denies any chest pain. Patient is unvacci nated. He has not tested for Covid. He does have a recent diagnosis of diabetes type 2 and hypertension. Patient states that he is on Metformin and glipizide. He states he takes lisinopril for his hypertension. Patient is taking nothing for his fever or body aches. He states is been able to hold down water. Ibuprofen 800 mg have been ordered. Chest x-ray has been ordered as patient is mildly hypoxic at 95% on room air. Ambulatory pulse ox has been ordered. Patient was ambulated by metallurgical lab technician he was able to maintain his sats above 97% but he became tachycardic at 141. Therefore ordered basic labs INT and fluids. Patient will be reevaluated. Patient just received his ibuprofen at 1637. The patient's care has been transferred to and accepted by[ Kristin Kilpatrick PA-C }. We discussed: The patient's chief complaints; labs and imaging that have been completed and those that are still pending; any treatment provided and the patient's response to treatment; any significant change in condition; the treatment plan prior to the transfer of care. The accepting provider will follo w up on all pending labs and imaging and make any necessary changes to the current impression and/or treatment plan. The accepting physician/midlevel is now responsible for the patient's care and final disposition. <TEO MCCOY - Last Filed: 06/16/21 16:18> - Lab Data Result diagrams: 06/16/21 16:52 06/16/21 16:52 - Medical Decision Making 1913: Labs reviewed and shows no significant abnormalities. Patient vital signs have improved after IV fluids and medication. Vital signs were as follows --BP was 117/78, temp was 98.6, O2 sat 90% on room air and heart rate 88. He is currently resting comfortably, he is not in any significant pain or respiratory distress. He has no meningeal signs on exam. Abdomen soft and nontender. Patient symptoms is concerning for viral illness like Covid. Recommend to patient that he should get an outpatient COVID-19 test. He should quarantine at home and to get the results of your test. In the meantime recommend continued monitoring of his temperatures at home, he can take Tylenol and ibuprofen to help with any fever or pain. He can also take [id number] cough cold medications and lots of fluids. Patient expressed understanding for instructions and agree with plan. Patient was stable at time of discharge. <BRIAN KILPATRICK - Last Filed: 06/16/21 19:46> Critical care attestation.: If time is entered above; I have spent that time in minutes in the direct care of this critically ill patient, excluding procedure time. <TEO MCCOY - Last Filed: 06/16/21 16:18> Critical care attestation.: If time is entered above; I have spent that time in minutes in the direct care of this critically ill patient, excluding procedure time. <BRIAN KILPATRICK - Last Filed: 06/16/21 19:46> ED Disposition <TEO MCCOY - Last Filed: 06/16/21 16:18> Is pt being admited?: No Does the pt Need Aspirin: No Time of Disposition: 19:18 <BRIAN KILPATRICK - Last Filed: 06/16/21 19:46> Clinical Impression: Viral illness, Suspected COVID-19 virus infection Disposition: HOME / SELF CARE / HOMELESS Condition: Stable Instructions: COVID-19: How to Protect Yourself and Others - CDC, Viral Illness, Adult Additional Instructions: Your symptoms are concerning for COVID-19 and so therefore I suggest that you get the outpatient COVID-19 test. You should be to get a COVID-19 test at any local clinic, urgent care or pharmacy. A list of locations will also be provided to you at discharge. Take the ibuprofen as prescribed and as needed with any pain or fever. You can alternate with Tylenol. I recommend taking [id number] Coricidin HP cough cold medications to help with your symptoms. The course in HPI is better for patients who has hypertension. Increase your fluid intake. Return to the ER if at any point your symptoms worsens in any way. Prescriptions: Ibuprofen [Motrin] 600 mg PO Q8H PRN #30 tablet PRN Reason: Pain Referrals: PRIMARY CARE, [Primary Care Provider] - 3-5 Days Forms: Work/School Release Form(ED)
--- NOTE | 2021-06-16 16:01 | XRay Report ---
CHEST 2 VIEWS INDICATION / CLINICAL INFORMATION: Fever cough. COMPARISON: 04/30/2021 FINDINGS: SUPPORT DEVICES: None. HEART / MEDIASTINUM: No significant abnormality. LUNGS / PLEURA: No significant pulmonary or pleural abnormality. No pneumothorax. ADDITIONAL FINDINGS: No significant additional findings. IMPRESSION: 1. No acute findings. Signer Name: William Petersen MD Signed: 06/16/2021 3:56 PM Workstation Name: [id number]
[2021-06-16] MEDS ORDERED: SODIUM CHLORIDE 0.9% 1000 ML 1,000 ML IV ONE (16:34)
[2021-06-16 17:22] LABS: Hematocrit 42.7 % (35.5-45.6); Hemoglobin 13.8 gm/dl (11.8-15.2); Mean Corpuscular HGB Conc 32 % (32-34); Mean Corpuscular Volume 89 fl (84-94); Platelet Count 208 K/mm3 (140-440); Red Blood Count 4.82 M/mm3 (3.65-5.03); Red Cell Distribution Width 14.1 % (13.2-15.2)
[2021-06-16 17:42] LABS: Alanine Aminotransferase 34 units/L (7-56); Albumin 4.4 g/dL (3.9-5); BUN/Creatinine Ratio 17; Blood Urea Nitrogen 17 mg/dL (9-20); Calcium 9.9 mg/dL (8.4-10.2); Hemolysis Index 11
[2021-06-16 17:55] LABS: Total Cells Counted 100
[2021-06-16 17:56] LABS: Band Neutrophils # (Manual) 0.1 K/mm3; Platelet Estimate Consistent w Auto; RBC Morphology Normal
[2021-06-16 20:15] VITALS: BP 117/78
== END 2021-06-16 19:28 | disposition home or self-care (01) ==
LOC: ED 12:57
DX: B34.9 Viral infection, unspecified (principal); Z20.822 Contact with and (suspected) exposure to COVID-19; I10 Essential (primary) hypertension; E11.9 Type 2 diabetes mellitus without complications
CPT/HCPCS: 36415; 71046; 80053; 85007; 85025; 96360; 99284; J7030; Q0162

== ENCOUNTER 2021-11-19 13:34 | Emergency (ER) | payer OTHER ==
[2021-11-19 15:25] VITALS: BP 133/94
== END 2021-11-19 17:00 | disposition left against medical advice (07) ==
LOC: ED 13:34
DX: R73.9 Hyperglycemia, unspecified (principal); Z53.21 Procedure and treatment not carried out due to patient leaving prior to being seen by health care provider

== ENCOUNTER 2022-01-23 20:00 | Emergency (ER) | payer SELFPAY ==
[2022-01-23 20:58] VITALS: BP 140/93
[2022-01-23 22:11] LABS: Basophils % (Auto) 0.3 % (0.0-1.8); Eosinophils # (Auto) 0.1 K/mm3 (0.0-0.4); Eosinophils % (Auto) 1.9 % (0.0-4.3); Hematocrit 39.8 % (35.5-45.6); Hemoglobin 12.9 gm/dl (11.8-15.2); Lymphocytes # (Auto) 3.1 K/mm3 (1.2-5.4); Lymphocytes % (Auto) 44.3 % (13.4-35.0); Mean Corpuscular HGB Conc 32 % (32-34); Mean Corpuscular Volume 87 fl (84-94); Monocytes # (Auto) 0.6 K/mm3 (0.0-0.8); Monocytes % (Auto) 8.5 % (0.0-7.3); Platelet Count 225 K/mm3 (140-440); Red Blood Count 4.57 M/mm3 (3.65-5.03); Red Cell Distribution Width 14.5 % (13.2-15.2)
[2022-01-23 22:33] LABS: Alanine Aminotransferase 28 units/L (7-56); Albumin 3.9 g/dL (3.9-5); BUN/Creatinine Ratio 17; Blood Urea Nitrogen 17 mg/dL (9-20); Calcium 9.2 mg/dL (8.4-10.2); Hemolysis Index 9
== END 2022-01-25 | disposition left against medical advice (07) ==
LOC: ED 20:00
DX: R53.1 Weakness (principal); Z53.21 Procedure and treatment not carried out due to patient leaving prior to being seen by health care provider
CPT/HCPCS: 36415; 80053; 85025